=== PATIENT | male | born 1975 | race Caucasian/White ===

== ENCOUNTER 2018-09-06 09:51 | Emergency (ER) | payer BC, OTHER ==
[2018-09-06] MEDS ORDERED: NA CHLORIDE 0.9% 1,000 ML ONE (10:25)
[2018-09-06] MEDS ORDERED: ONDANSETRON 4 MG/2 ML VIAL ONE (10:25)
[2018-09-06] MEDS ORDERED: KETOROLAC 30 MG/ML INJ ONE (10:25)
[2018-09-06 10:35] LABS: Absolute Lymphocytes (CBC) 2.5 K/uL (0.7-4.9); Absolute Monocytes 0.3 K/uL (0.1-1.3); Absolute Neutrophil 4.4 K/uL (1.8-8.0); Basophils % 0.6 % (0-1.3); Eosinophils % 3.5 % (0-4.4); Hematocrit 43.6 % (39.6-49.0); Lymphocytes % 32.9 % (15.3-44.8); MPV 8.5 fL (7.6-11.3); Monocytes % 4.1 % (3.3-12.3); RBC Red Blood Cell Count 4.68 M/uL (4.33-5.43)
--- NOTE | 2018-09-06 10:44 | RAD REPORT ---
EXAM DESCRIPTION: CT - Stone Protocol - 09/06/2018 10:27 am CLINICAL HISTORY: Abdominal pain. Left flank pain COMPARISON: 2015 TECHNIQUE: Computed axial tomography of the abdomen pelvis was obtained without oral or IV contrast. Lack of IV and oral contrast limits evaluation of solid organs, bowel, and vessels. Coronal reformat samina images were obtained and reviewed. All CT scans are performed using dose optimization technique as appropriate and may include automated exposure control or mA/KV adjustment according to patient size. FINDINGS Small multiple bilateral renal calculi are present. Mild left hydronephrosis is present. Within the m id left ureter is a 3 millimeter calculus Hounsfield unit 794. . The liver, spleen, pancreas and adrenals appear grossly normal There is no evidence of diverticulitis. The appendix appears normal Small umbilical hernia IMPRESSION: 3 millimeter calculus mid left ureter resulting in mild left hydronephrosis
[2018-09-06 10:52] LABS: Albumin 4.3 g/dL (3.4-5.0); Bilirubin Direct 0.2 mg/dL (0-0.2); Bilirubin Total 0.9 mg/dL (0.2-1.0); Potassium 3.8 mmol/L (3.5-5.1); Protein, Total 7.8 g/dL (6.4-8.2)
[2018-09-06] MEDS ORDERED: TAMSULOSIN 0.4 MG SR CAP ONE (11:25)
[2018-09-06] MEDS ORDERED: CEFTRIAXONE/SWI 1gm 1 GM/10 ML SYR ONE (11:26)
[2018-09-06] MEDS ORDERED: MAGNESIUM SULFATE 1 gm IVPB 1 GM/100 ML BAG IV ONE (11:26)
[2018-09-06] MEDS ORDERED: FENTANYL CITR 100 MCG/2 ML ONE (12:17)
--- NOTE | 2018-09-06 12:30 | ER ---
Nurse's Notes [facility] Name: Olvin Butt Age: 42 yrs Sex: Male : 1975 Arrival Date: 09/06/2018 Time: 09:55 Bed 18 Private MD: Diagnosis: Calculus of kidney and ureter Presentation: 09/06 09:58 Presenting complaint: Patient states: left flank pain radiating down to left groin that aa5 began yesterday, went away and pain came back today. 09:58 Transition of care: patient was not received from another setting of care. Onset of aa5 symptoms was August 2018. Risk Assessment: Do you want to hurt yourself or someone else? Patient reports no desire to harm self or others. Initial Sepsis Screen: Does the patient meet any 2 criteria? No. Patient's initial sepsis screen is negative. Does the patient have a suspected source of infection? No. Patient's initial sepsis screen is negative. Care prior to arrival: None. 09:58 Method Of Arrival: Ambulatory aa5 09:58 Acuity: IDALMIS 3 aa5 Historical: - Allergies: 10:00 Lidocaine; aa5 - PMHx: 10:00 Kidney stones; aa5 - PSHx: 10:00 right arm with screws; left ankle with screws; aa5 - Immunization history:: Adult Immunizations up to date. - Social history:: Smoking status: Patient/guardian denies using tobacco. - Ebola Screening: : No symptoms or risks identified at this time. Screenin:06 Abuse screen: Denies threats or abuse. Nutritional screening: No deficits noted. aa5 Tuberculosis screening: No symptoms or risk factors identified. Fall Risk None identified. Assessment: 10:00 General: Appears uncomfortable, Behavior is calm, cooperative. Pain: Complains of pain aa5 in left flank Pain radiates to left groin Pain currently is 8 out of 10 on a pain scale. Quality of pain is described as sharp, shooting, Pain began 1 day ago. Is continuous. Neuro: Level of Consciousness is awake, alert, obeys commands, Oriented to person, place, time, situation. Cardiovascular: Heart tones S1 S2 present Rhythm is regular. Respiratory: Airway is patent Respiratory effort is even, unlabored, Respiratory pattern is regular, symmetrical. GI: Abdomen is round non-distended, Bowel sounds present X 4 quads. Abd is soft and non tender X 4 quads. : Denies inability to void. EENT: No signs and/or symptoms were reported regarding the EENT system. Derm: Skin is pink, warm \T\ dry. Musculoskeletal: Range of motion: intact in all extremities. 11:00 Reassessment: Patient appears in no apparent distress at this time. Patient and/or em family updated on plan of care and expected duration. Pain level reassessed. Patient is alert, oriented x 3, equal unlabored respirations, skin warm/dry/pink. Patient states feeling better. 12:00 Reassessment: Patient appears in no apparent distress at this time. Patient and/or em family updated on plan of care and expected duration. Pain level reassessed. pt reports pain provider notified, new medication orders. 13:08 Reassessment: Patient appears in no apparent distress at this time. Patient and/or em family updated on plan of care and expected duration. Pain level reassessed. Patient is alert, oriented x 3, equal unlabored respirations, skin warm/dry/pink. Patient states feeling better. Patient states symptoms have improved. Vital Signs: 10:00 BP 157 / 101; Pulse 75; Resp 18 S; Temp 98.1(O); Pulse Ox 99% on R/A; Weight 106.59 kg aa5 (R); Height 6 ft. 0 in. (182.88 cm) (R); Pain 8/10; 11:12 BP 105 / 67; Pulse 67; Resp 18; Temp 98.4(O); Pulse Ox 96% on R/A; mh5 12:00 BP 116 / 73; Pulse 69; Resp 18; Pulse Ox 99% on R/A; Pain 5/10; em 10:00 Body Mass Index 31.87 (106.59 kg, 182.88 cm) aa5 ED Course: 09:55 Patient arrived in ED. mr 09:58 Arm band placed on Patient placed in an exam room, on a stretcher. aa5 09:58 Patient has correct armband on for positive identification. Placed in gown. Bed in low aa5 position. Call light in reach. Side rails up X 1. 10:00 Isaiah Chambers LVN is Primary Nurse. em 10:02 Triage completed. aa5 10:06 No provider procedures requiring assistance completed. aa5 10:07 [facility] cp 10:07 Richar Hamilton MD is Attending Physician. cp 10:25 CT completed. Patient tolerated procedure well. Patient moved back from CT. bq 10:26 Initial lab(s) drawn, by me, sent to lab. Inserted saline lock: 20 gauge in left mh5 antecubital area, using aseptic technique. Blood collected. 10:27 Pillow given. Pulse ox on. NIBP on. 5 10:27 Basic Metabolic Panel Sent. 5 10: CBC with Diff Sent. 5 10: Creatinine for Radiology Sent. mh5 10:27 Hepatic Function Sent. 5 10:27 Lipase Sent. 5 12:26 Georgina Gutierrez MD is Referral Physician. cp 12:35 Urine collected: clean catch specimen, clear. em 13:07 IV discontinued, intact, bleeding controlled, No redness/swelling at site. Pressure em dressing applied. Administered Medications: 10:21 Drug: NS 0.9% 1000 ml Route: IV; Rate: 1 bolus; Site: left antecubital; em 11:44 Follow up: IV Status: Completed infusion; IV Intake: 1000ml em 10:22 Drug: TORadol 30 mg Route: IVP; Site: left antecubital; aa5 10:49 Follow up: Response: No adverse reaction; Pain is decreased em 10:22 Drug: Zofran 4 mg Route: IVP; Site: left antecubital; aa5 10:49 Follow up: Response: No adverse reaction em 11:21 Drug: Magnesium Sulfate 1 grams Route: IVPB; Infused Over: 1 hrs; Site: left em antecubital; 12:45 Follow up: Response: No adverse reaction; IV Status: Completed infusion; IV Intake: em 100ml 11:21 Drug: Flomax 0.4 mg Route: PO; em 11:44 Follow up: Response: No adverse reaction em 12:17 Drug: fentaNYL (PF) 50 mcg Route: IVP; Site: left antecubital; aa5 12:40 Follow up: Response: No adverse reaction; Pain is decreased em 12:40 Drug: Rocephin - (cefTRIAXone) 1 grams Route: IVPB; Infused Over: 30 mins; Site: left aa5 antecubital; 13:07 Follow up: Response: No adverse reaction; IV Status: Completed infusion; IV Intake: 10mlem Intake: 11:44 IV: 1000ml; Total: 1000ml. em 12:45 IV: 100ml; Total: 1100ml. em 13:07 IV: 10ml; Total: 1110ml. em Outcome: 12:29 Discharge ordered by . cp 13:07 Discharged to home ambulatory. em 13:07 Condition: good 13:07 Discharge instructions given to patient, Instructed on discharge instructions, follow up and referral plans. no drinking with medication, no driving heavy equipment, medication usage, Demonstrated understanding of instructions, follow-up care, medications, Prescriptions given X 4. 13:09 Patient left the ED. em Signatures: Dotty HarmanveronicaTaniya Edgar, ULTRASOUND TESTER ULTRASOUND TESTER em Jenny Wells, LI RN aa5 Richar Aquino PA PA cp [place] [id number]
--- NOTE | 2018-09-06 12:30 | EDPHYS ---
Physician Documentation [facility] Name: Olvin Butt Age: 42 yrs Sex: Male : 1975 Arrival Date: 09/06/2018 Time: 09:55 Bed 18 Private MD: ED Richar Bean HPI: 09/06 10:30 This 42 yrs old Male presents to ER via Ambulatory with complaints of cp Possible Kidney Stone. 10:30 The patient complains of pain in the left mid back. cp 10:30 The pain radiates to the left groin. Onset: The symptoms/episode began/occurred cp yesterday. Associated signs and symptoms: Pertinent positives: nausea. Historical: - Allergies: 10:00 Lidocaine; aa5 - PMHx: 10:00 Kidney stones; aa5 - PSHx: 10:00 right arm with screws; left ankle with screws; aa5 - Immunization history:: Adult Immunizations up to date. - Social history:: Smoking status: Patient/guardian denies using tobacco. - Ebola Screening: : No symptoms or risks identified at this time. ROS: 10:35 Constitutional: Negative for body aches, chills, fever, poor PO intake. cp 10:35 Eyes: Negative for injury, pain, redness, and discharge. cp 10:35 ENT: Negative for drainage from ear(s), ear pain, sore throat, difficulty swallowing, difficulty handling secretions. 10:35 Cardiovascular: Negative for chest pain, edema, palpitations. 10:35 Respiratory: Negative for cough, shortness of breath, wheezing. 10:35 Abdomen/GI: Positive for abdominal pain, nausea, Negative for vomiting, diarrhea, constipation, black/tarry stool, rectal bleeding. 10:35 Back: Positive for flank pain, on the left, Negative for injury or acute deformity, decreased range of motion. 10:35 Skin: Negative for cellulitis, rash. 10:35 Neuro: Negative for altered mental status, headache, weakness. 10:35 All other systems are negative. Exam: 10:42 Constitutional: The patient appears in no acute distress, alert, awake, non-toxic, well cp developed, well nourished, diaphoretic, uncomfortable. 10:42 Head/Face: Normocephalic, atraumatic. cp 10:42 Eyes: Periorbital structures: appear normal, Conjunctiva: normal, no exudate, no injection, Sclera: no appreciated abnormality, Lids and lashes: appear normal, bilaterally. 10:42 ENT: External ear(s): are unremarkable, Nose: is normal, Mouth: is normal, Posterior pharynx: is normal, airway is patent, no erythema, no exudate. 10:42 Neck: ROM/movement: is normal, is supple, without pain, no range of motions limitations, no nuchal rigidity. 10:42 Chest/axilla: Inspection: normal, Palpation: is normal, no crepitus, no tenderness. 10:42 Cardiovascular: Rate: normal, Rhythm: regular. 10:42 Respiratory: the patient does not display signs of respiratory distress, Respirations: normal, no use of accessory muscles, no retractions, no splinting, no tachypnea, Breath sounds: are clear throughout, no decreased breath sounds, no stridor, no wheezing. 10:42 Abdomen/GI: Inspection: abdomen appears normal, Bowel sounds: active, all quadrants, Palpation: soft, in all quadrants, mild abdominal tenderness, in the left upper quadrant and left lower quadrant, rebound tenderness, is not appreciated, voluntary guarding, is not appreciated, involuntary guarding, is not appreciated. 10:42 Skin: cellulitis, is not appreciated, no rash present. Vital Signs: 10:00 BP 157 / 101; Pulse 75; Resp 18 S; Temp 98.1(O); Pulse Ox 99% on R/A; Weight 106.59 kg aa5 (R); Height 6 ft. 0 in. (182.88 cm) (R); Pain 8/10; 11:12 BP 105 / 67; Pulse 67; Resp 18; Temp 98.4(O); Pulse Ox 96% on R/A; mh5 12:00 BP 116 / 73; Pulse 69; Resp 18; Pulse Ox 99% on R/A; Pain 5/10; em 10:00 Body Mass Index 31.87 (106.59 kg, 182.88 cm) aa5 MDM: 10:08 Patient medically screened. cp 10:45 Differential diagnosis: nephrolithiasis, pyelonephritis, UTI, testicular torsion, cp diverticulitis, pancreatitis. 12:28 Data reviewed: vital signs, nurses notes, lab test result(s), radiologic studies, CT cp scan. 12:28 Counseling: I had a detailed discussion with the patient and/or guardian regarding: the cp historical points, exam findings, and any diagnostic results supporting the discharge/admit diagnosis, lab results, radiology results, to return to the emergency department if symptoms worsen or persist or if there are any questions or concerns that arise at home. Response to treatment: the patient's symptoms have markedly improved after treatment, and as a result, I will discharge patient. 09/06 10:11 Order name: Basic Metabolic Panel 09/06 10:11 Order name: CBC with Diff 09/06 10:11 Order name: Creatinine for Radiology 09/06 10:11 Order name: Hepatic Function 09/06 10:11 Order name: Lipase 09/06 10:33 Order name: Urine Microscopic Only 09/06 10:11 Order name: CT Stone Protocol 09/06 10:37 Order name: CBC with Automated Diff; Complete Time: 11:10 EDUT 09/06 10:44 Order name: CT; Complete Time: 11:10 [facility] 09/06 11:17 Interpretation: Report reviewed. 09/06 10:50 Order name: Creatinine (Radiology Only); Complete Time: 11:10 EDUT 09/06 10:52 Order name: Basic Metabolic Panel; Complete Time: 11:10 [facility] 09/06 11:16 Interpretation: Normal except: CL 108; GFR 74. 09/06 10:52 Order name: Liver (Hepatic) Function; Complete Time: 11:10 [facility] 09/06 12:17 Interpretation: Normal except: ALT 99. 09/06 10:52 Order name: Lipase; Complete Time: 11:10 [facility] 09/06 13:02 Order name: Urine Microscopic Only [facility] 09/06 10:11 Order name: IV Saline Lock; Complete Time: 10:21 09/06 10:11 Order name: Labs collected and sent; Complete Time: 10:21 cp 09/06 10:33 Order name: Urine Dipstick-Ancillary (obtain specimen); Complete Time: 12:35 cp Administered Medications: 10:21 Drug: NS 0.9% 1000 ml Route: IV; Rate: 1 bolus; Site: left antecubital; em 11:44 Follow up: IV Status: Completed infusion; IV Intake: 1000ml em 10:22 Drug: TORadol 30 mg Route: IVP; Site: left antecubital; aa5 10:49 Follow up: Response: No adverse reaction; Pain is decreased em 10:22 Drug: Zofran 4 mg Route: IVP; Site: left antecubital; aa5 10:49 Follow up: Response: No adverse reaction em 11:21 Drug: Magnesium Sulfate 1 grams Route: IVPB; Infused Over: 1 hrs; Site: left em antecubital; 12:45 Follow up: Response: No adverse reaction; IV Status: Completed infusion; IV Intake: em 100ml 11:21 Drug: Flomax 0.4 mg Route: PO; em 11:44 Follow up: Response: No adverse reaction em 12:17 Drug: fentaNYL (PF) 50 mcg Route: IVP; Site: left antecubital; aa5 12:40 Follow up: Response: No adverse reaction; Pain is decreased em 12:40 Drug: Rocephin - (cefTRIAXone) 1 grams Route: IVPB; Infused Over: 30 mins; Site: left aa5 antecubital; 13:07 Follow up: Response: No adverse reaction; IV Status: Completed infusion; IV Intake: 10mlem Disposition: 09/06/18 12:29 Discharged to Home. Impression: Calculus of kidney and ureter. - Condition is Stable. - Discharge Instructions: Kidney Stones. - Prescriptions for Tylenol- Codeine #3 300-30 mg Oral Tablet - take 2 tablets by ORAL route every 6 hours As needed; 20 tablet. Zofran 4 mg Oral Tablet - take 1 tablet by ORAL route every 12 hours As needed; 20 tablet. Flomax 0.4 mg Oral Capsule, Sust. Release 24 hr - take 1 capsule by ORAL route once daily As needed 1/2 hour following the same meal each day; 5 capsule. Cipro 500 mg Oral Tablet - take 1 tablet by ORAL route every 12 hours for 7 days; 14 tablet. - Medication Reconciliation Form, Thank You Letter, Antibiotic Education, Prescription Opioid Use form. - Follow up: Georgina Gutierrez MD; When: 2 - 3 days; Reason: pain continues. - Problem is new. - Symptoms have improved. Addendum: 09/08/2018 07:44 Co-signature as Attending Physician, Richar Hamilton MD I agree with the assessment and c saul plan of care. Signatures: Dispatcher [employer] Richar Lyn MD MD cha Munoz, Edgar, PROGRAM SUPPORT CLERK PROGRAM SUPPORT CLERK em Jenny Wells RN RN aa5 Richar Aquino PA PA cp Corrections: (The following items were deleted from the chart) 09/06 13:09 12:29 09/06/2018 12:29 Discharged to Home. Impression: Calculus of kidney and ureter. em Condition is Stable. Discharge Instructions: Kidney Stones. Prescriptions for Tylenol-Codeine #3 300-30 mg Oral Tablet - take 2 tablets by ORAL route every 6 hours As needed; 20 tablet, Zofran 4 mg Oral Tablet - take 1 tablet by ORAL route every 12 hours As needed; 20 tablet, Flomax 0.4 mg Oral Capsule, Sust. Release 24 hr - take 1 capsule by ORAL route once daily As needed 1/2 hour following the same meal each day; 5 capsule, Cipro 500 mg Oral Tablet - take 1 tablet by ORAL route every 12 hours for 7 days; 14 tablet. and Forms are Medication Reconciliation Form, Thank You Letter, Antibiotic Education, Prescription Opioid Use. Follow up: Georgina Gutierrez; When: 2 - 3 days; Reason: pain continues. Problem is new. Symptoms have improved. cp
[2018-09-06 13:01] LABS: Urine Bacteria <20 /HPF (NONE SEEN); Urine Culture Reflex Order NOT NEEDED; Urine Mucus 1+ /HPF (NONE SEEN)
== END 2018-09-06 13:09 | disposition home or self-care (01) ==
LOC: ER 09:51
DX: N20.2 Calculus of kidney with calculus of ureter (principal); Z88.6 Allergy status to analgesic agent
CPT/HCPCS: 36415; 74176; 76377; 80048; 80076; 81015; 83690; 85025; J0696; J2405; J3010; J3475; J7030

== ENCOUNTER 2019-02-27 12:22 | Emergency (ER) | payer BC ==
[2019-02-27] MEDS ORDERED: GLUCAGON 1 MG/VIAL ONE ×2 (13:45→14:48)
--- NOTE | 2019-02-27 14:05 | RAD REPORT ---
EXAM DESCRIPTION: RAD - Chest Pa And Lat (2 Views) - 02/27/2019 1:57 pm CLINICAL HISTORY: food bolus sensation Chest pain. COMPARISON: Abdomen 1 View (KUB) dated 08/07/2016 FINDINGS: The lungs are clear. The heart is normal in size. No displaced fractures.
--- NOTE | 2019-02-27 15:36 | ER ---
Nurse's Notes [facility] Name: Olvin Butt Age: 43 yrs Sex: Male : 1975 Arrival Date: 02/27/2019 Time: 12:23 Bed 25 Private MD: Diagnosis: Foreign body in esophagus Presentation: 02/27 12:38 Presenting complaint: Patient states: Theres a piece of boneless chicken breast in my la1 esophagus that is stuck, this will be the third time, have had to have surgery both other times. Transition of care: patient was not received from another setting of care. Onset of symptoms was February 27, 2019. Risk Assessment: Do you want to hurt yourself or someone else? Patient reports no desire to harm self or others. Initial Sepsis Screen: Does the patient meet any 2 criteria? No. Patient's initial sepsis screen is negative. Does the patient have a suspected source of infection? No. Patient's initial sepsis screen is negative. Care prior to arrival: None. 12:38 Method Of Arrival: Ambulatory la1 12:38 Acuity: IDALMIS 3 la1 Historical: - Allergies: 12:39 Lidocaine; la1 - PMHx: 12:39 Kidney stones; la1 - Immunization history:: Adult Immunizations up to date. - Social history:: Smoking status: Patient/guardian denies using tobacco. - Ebola Screening: : No symptoms or risks identified at this time. Screenin:15 Abuse screen: Denies threats or abuse. Denies injuries from another. Nutritional ca1 screening: No deficits noted. Tuberculosis screening: No symptoms or risk factors identified. Fall Risk IV access (20 points). Assessment: 13:15 General: Appears in no apparent distress. comfortable, Behavior is calm, cooperative, ca1 appropriate for age. Pain: Complains of pain in mid-sternal area Pain does not radiate. Pain currently is 5 out of 10 on a pain scale. Neuro: Level of Consciousness is awake, alert, obeys commands, Oriented to person, place, time, situation. Cardiovascular: Heart tones S1 S2 present Capillary refill < 3 seconds Patient's skin is warm and dry. Pulses are all present. Respiratory: Airway is patent Respiratory effort is even, unlabored, Respiratory pattern is regular, symmetrical, Breath sounds are clear bilaterally. GI: Abdomen is round non-distended, Bowel sounds present X 4 quads. Abd is soft and non tender X 4 quads. : No deficits noted. No signs and/or symptoms were reported regarding the genitourinary system. EENT: Throat is clear is pink. Derm: Skin is intact, is healthy with good turgor, Skin is pink, warm \T\ dry. Musculoskeletal: Circulation, motion, and sensation intact. Capillary refill < 3 seconds. 14:09 Reassessment: Patient appears in no apparent distress at this time. Patient and/or ca1 family updated on plan of care and expected duration. Pain level reassessed. Patient is alert, oriented x 3, equal unlabored respirations, skin warm/dry/pink. Pt states, he feels like it's still in his throat. 15:03 Reassessment: Patient appears in no apparent distress at this time. Patient and/or ca1 family updated on plan of care and expected duration. Pain level reassessed. Patient is alert, oriented x 3, equal unlabored respirations, skin warm/dry/pink. 16:04 Reassessment: Patient appears in no apparent distress at this time. Patient and/or ca1 family updated on plan of care and expected duration. Pain level reassessed. Patient is alert, oriented x 3, equal unlabored respirations, skin warm/dry/pink. 16:31 Reassessment: Patient appears in no apparent distress at this time. Patient is alert, ca1 oriented x 3, equal unlabored respirations, skin warm/dry/pink. Called report to LI Yadav. Vital Signs: 12:39 BP 140 / 94; Pulse 76; Resp 16; Temp 98.2; Pulse Ox 98% on R/A; Weight 103.42 kg; la1 Height 6 ft. 0 in. (182.88 cm); 13:15 BP 132 / 95; Pulse 74; Resp 17 S; Pulse Ox 100% on R/A; ca1 14:09 BP 120 / 90; Pulse 82; Resp 17 S; Temp 98.1(O); Pulse Ox 99% on R/A; ca1 15:03 BP 116 / 87; Pulse 60; Resp 17 S; Temp 98(O); Pulse Ox 98% on R/A; ca1 16:04 BP 114 / 87; Pulse 64; Resp 16 S; Temp 98(O); Pulse Ox 100% on R/A; ca1 16:41 BP 125 / 88; Pulse 76; Resp 15 S; Temp 98(O); Pulse Ox 100% on R/A; ca1 12:39 Body Mass Index 30.92 (103.42 kg, 182.88 cm) la1 ED Course: 12:23 Patient arrived in ED. as 12:38 Triage completed. la1 12:39 Arm band placed on left wrist. la1 13:15 Patient has correct armband on for positive identification. Placed in gown. Bed in low ca1 position. Call light in reach. Side rails up X 1. Pulse ox on. NIBP on. Warm blanket given. 13:16 Clara Casey RN is Primary Nurse. ca1 13:19 Fredy Zhao NP is PHCP. pm1 13:19 Aramis Rubio MD is Attending Physician. pm1 13:30 Inserted saline lock: 20 gauge in left antecubital area, using aseptic technique. ca1 13:57 X-ray completed. Patient tolerated procedure well. Patient moved to radiology via ml wheelchair. Patient moved back from radiology. 13:57 Chest Pa And Lat (2 Views) XRAY In Process Unspecified. EDMS 16:31 No provider procedures requiring assistance completed. Patient transferred, IV remains ca1 in place. Administered Medications: 13:30 Drug: Glucagon 1 mg Route: IVP; Site: left antecubital; ca1 14:31 Follow up: Response: No adverse reaction ca1 14:36 Drug: Glucagon 1 mg Route: IVP; Site: left antecubital; ca1 16:08 Follow up: Response: No adverse reaction; No change in condition ca1 16:20 Drug: NS 0.9% 1000 ml Route: IV; Rate: 125 ml/hr; Site: left antecubital; ca1 17:09 Follow up: IV Status: Infusion continued upon transfer ca1 Outcome: 15:35 ER care complete, transfer ordered by . pm1 17:09 Transferred by ground EMS to [facility], Transfer form completed. ca1 X-rays sent w/ patient. 17:09 Condition: stable 17:09 Instructed on the need for transfer. 17:09 Patient left the ED. ca1 Signatures: Dispatcher [employer] EDMS Mirella Perez Melissa ml Attema, Lee, RN RN la1 Fredy Zhao NP [employer]ANBERR[employer]OG SUPERVISOR pm1 Acmika, Clara, RN RN ca1
--- NOTE | 2019-02-27 15:36 | EDPHYS ---
Physician Documentation [facility] Name: Olvin Butt Age: 43 yrs Sex: Male : 1975 Arrival Date: 02/27/2019 Time: 12:23 Bed 25 Private MD: ED Physician Aramis Rubio HPI: 02/27 13:42 This 43 yrs old Male presents to ER via Ambulatory with complaints of Foreign pm1 Body In Throat. 13:42 The patient presents with a foreign body sensation in the throat. Onset: The pm1 symptoms/episode began/occurred 1 hour prior to arrival. Severity of symptoms: in the emergency department the symptoms are unchanged. Modifying factors: The symptoms are alleviated by nothing, the symptoms are aggravated by swallowing, has some difficulty with swallowing his spit. Spits it out. No shortness of breath or difficulty with talking. Historical: - Allergies: 12:39 Lidocaine; la1 - PMHx: 12:39 Kidney stones; la1 - Immunization history:: Adult Immunizations up to date. - Social history:: Smoking status: Patient/guardian denies using tobacco. - Ebola Screening: : No symptoms or risks identified at this time. ROS: 13:42 Constitutional: Negative for fever, chills, and weight loss, Eyes: Negative for injury, pm1 pain, redness, and discharge, ENT: Negative for injury, pain, and discharge, Neck: Negative for injury, pain, and swelling, Cardiovascular: Negative for chest pain, palpitations, and edema, Respiratory: Negative for shortness of breath, cough, wheezing, and pleuritic chest pain, Back: Negative for injury and pain, MS/Extremity: Negative for injury and deformity, Skin: Negative for injury, rash, and discoloration, Neuro: Negative for headache, weakness, numbness, tingling, and seizure. 13:42 Abdomen/GI: Positive for Difficulty with swallowing. Foreign body sensation in throat, Negative for abdominal pain, nausea, vomiting, and diarrhea. Exam: 13:42 Constitutional: This is a well developed, well nourished patient who is awake, alert, pm1 and in no acute distress. Head/Face: Normocephalic, atraumatic. Neck: Trachea midline, no thyromegaly or masses palpated, and no cervical lymphadenopathy. Supple, full range of motion without nuchal rigidity, or vertebral point tenderness. No Meningismus. Chest/axilla: Normal chest wall appearance and motion. Nontender with no deformity. No lesions are appreciated. Cardiovascular: Regular rate and rhythm with a normal S1 and S2. No gallops, murmurs, or rubs. Normal PMI, no JVD. No pulse deficits. Respiratory: Lungs have equal breath sounds bilaterally, clear to auscultation and percussion. No rales, rhonchi or wheezes noted. No increased work of breathing, no retractions or nasal flaring. 13:42 Abdomen/GI: Soft, non-tender, with normal bowel sounds. No distension or tympany. No guarding or rebound. No evidence of tenderness throughout. Back: No spinal tenderness. No costovertebral tenderness. Full range of motion. Skin: Warm, dry with normal turgor. Normal color with no rashes, no lesions, and no evidence of cellulitis. MS/ Extremity: Pulses equal, no cyanosis. Neurovascular intact. Full, normal range of motion. 13:42 ENT: External ear(s): are unremarkable, Mouth: is normal, drooling, is not appreciated, Posterior pharynx: is normal. 13:42 Neuro: Orientation: is normal, Motor: is normal, moves all fours. Vital Signs: 12:39 BP 140 / 94; Pulse 76; Resp 16; Temp 98.2; Pulse Ox 98% on R/A; Weight 103.42 kg; la1 Height 6 ft. 0 in. (182.88 cm); 13:15 BP 132 / 95; Pulse 74; Resp 17 S; Pulse Ox 100% on R/A; ca1 14:09 BP 120 / 90; Pulse 82; Resp 17 S; Temp 98.1(O); Pulse Ox 99% on R/A; ca1 15:03 BP 116 / 87; Pulse 60; Resp 17 S; Temp 98(O); Pulse Ox 98% on R/A; ca1 16:04 BP 114 / 87; Pulse 64; Resp 16 S; Temp 98(O); Pulse Ox 100% on R/A; ca1 16:41 BP 125 / 88; Pulse 76; Resp 15 S; Temp 98(O); Pulse Ox 100% on R/A; ca1 12:39 Body Mass Index 30.92 (103.42 kg, 182.88 cm) la1 MDM: 13:23 Patient medically screened. pm1 15:25 Physician consultation: Wes Lainez MD was called at 15:25, was contacted at 15:25, pm1 regarding patient's condition, Not loss prevention leader and is out of town, recommends trying to contact Dr. Waller if he is available. 15:29 Data reviewed: vital signs. Data interpreted: Pulse oximetry: on room air is 98 %. pm1 Interpretation: normal. Counseling: I had a detailed discussion with the patient and/or guardian regarding: the historical points, exam findings, and any diagnostic results supporting the discharge/admit diagnosis. 15:29 Physician consultation: González Waller MD Not loss prevention leader. No answer. Left message. pm1 15:33 Counseling: I had a detailed discussion with the patient and/or guardian regarding: the pm1 need to transfer to another facility, [facility] does not immediately have the required specialist. 15:54 Physician consultation: MD Wesley was contacted at 15:55, regarding regarding transfer, pm1 consult, patient's condition, and will see patient. 16:04 Physician consultation: MD Morales was contacted at 16:04, regarding regarding pm1 transfer, patient's condition, and will see patient would like further tests performed, basic blood tests. 02/27 16:04 Order name: CBC with Diff; Complete Time: 16:47 pm1 02/27 16:04 Order name: CMP; Complete Time: 16:47 pm1 02/27 13:24 Order name: Chest Pa And Lat (2 Views) XRAY; Complete Time: 14:19 pm1 02/27 13:42 Order name: IV Saline Lock; Complete Time: 13:42 ca1 02/27 16:10 Order name: NPO; Complete Time: 16:20 pm1 Administered Medications: 13:30 Drug: Glucagon 1 mg Route: IVP; Site: left antecubital; ca1 14:31 Follow up: Response: No adverse reaction ca1 14:36 Drug: Glucagon 1 mg Route: IVP; Site: left antecubital; ca1 16:08 Follow up: Response: No adverse reaction; No change in condition ca1 16:20 Drug: NS 0.9% 1000 ml Route: IV; Rate: 125 ml/hr; Site: left antecubital; ca1 17:09 Follow up: IV Status: Infusion continued upon transfer ca1 Disposition: 17:30 Co-signature as Attending Physician, Aramis Rubio MD. rn Disposition: 02/27/19 15:35 Transfer ordered to [facility]. Diagnosis is Foreign body in esophagus. - Reason for transfer: Specialty. - Accepting physician is [facility]. - Condition is Stable. - Problem is new. - Symptoms have improved. Signatures: Dispatcher [employer] EDMS Aramis Rubio MD MD rn Attema, Lee, RN RN la1 Fredy Zhao MANAGER OF LOSS PREVENTION OPERATIONS MANAGER OF LOSS PREVENTION OPERATIONS pm1 Clara Casey RN RN ca1 Corrections: (The following items were deleted from the chart) 17: 15:35 02/27/2019 15:35 Transfer ordered to [facility]. Diagnosis is ca1 Foreign body in esophagus. Reason for transfer: Specialty. Accepting physician is [facility]. Condition is Stable. Problem is new. Symptoms have improved. pm1
[2019-02-27 16:20] LABS: Absolute Lymphocytes (CBC) 2.5 K/uL (0.7-4.9); Basophils % 0.7 % (0-1.3); Eosinophils % 3.2 % (0-4.4); Hematocrit 46.2 % (39.6-49.0); Lymphocytes % 23.7 % (15.3-44.8); MPV 8.5 fL (7.6-11.3); Monocytes % 3.3 % (3.3-12.3); RBC Red Blood Cell Count 4.89 M/uL (4.33-5.43)
[2019-02-27] MEDS ORDERED: NA CHLORIDE 0.9% 1,000 ML ONE (16:32)
[2019-02-27 16:42] LABS: Albumin 4.3 g/dL (3.4-5.0); Bilirubin Total 0.9 mg/dL (0.2-1.0); Potassium 4.3 mmol/L (3.5-5.1); Protein, Total 7.7 g/dL (6.4-8.2)
== END 2019-02-27 17:09 | disposition short-term general hospital (02) ==
LOC: ER 12:22
DX: T18.128A Food in esophagus causing other injury, initial encounter (principal); X58.XXXA Exposure to other specified factors, initial encounter; Y93.9 Activity, unspecified; Y92.9 Unspecified place or not applicable; Z88.8 Allergy status to other drugs, medicaments and biological substances
CPT/HCPCS: 36415; 71046; 80053; 85025; 96361; 96374; 99285; J1610; J7030

== ENCOUNTER 2019-08-05 21:47 | Emergency (ER) | payer BC ==
--- OUTSIDE RECORDS SUMMARY | 2019-08-05 21:49 | XMS REPORT ---
:1975 Author Organization [facility] Address [address] [place] [address] Care Team Providers Name Role Phone CLARICE MUNGUIA Unavailable Unavailable Problems This patient has no known problems. Allergies, Adverse Reactions, Alerts This patient has no known allergies or adverse reactions. Medications This patient has no known medications. Results Test Description Test Time Test Comments Text Results Atomic Results Result Comments TISSUE EXAM 2019-03-04 15:21:00 Surgical Pathology Report Case: [id number] Authorizing Provider: Roberto Garcia Collected: 02/27/20192034 Ordering Location: [address] Received: 03/02/2019 0817 Service Pathologist: Bakari Santana MD Specimens: A) - Distal Esophagus, Distal esophagus biopsy B) - Biopsy, Mid-esophagus, Mid esophagus biopsy A. ESOPHAGUS, DISTAL, BIOPSY: - SQUAMOUS EPITHELIUM WITH INTRA-EPITHELIAL EOSINOPHILS (SEE COMMENT)B. ESOPHAGUS, MID, BIOPSY: - SQUAMOUS EPITHELIUM WITH INTRA-EPITHELIAL EOSINOPHILS (SEE COMMENT) Signing Pathologist Direct Phone Line: [phone] signed by Bakari Santana MD on 03/04/2019 at 3:21 PMSections show squamous epithelium with prominent eosinophilia and reactive changes. The eosinophil count reaches the threshold of 15/HPF in some areas. Additionally, degenerating muscle fibers are seen consistent with foreign body.Considering the history of food impaction, histologic findings could be compatible with eosinophilic esophagitis. Clinical and endoscopic correlation is required to exclude other causes of eosinophilia such as GERD, pill induced esophagitis, hypereosinophilic syndrome, parasitic disease, Crohn's disease and connective tissue disorders.[id number] bolus obstruction A. Distal esophagus biopsy. B. Mid esophagus biopsyPart A. Received in formalin labeled with the patient's name, accession number and "distal esophagus" are multiple white soft tissue fragments ranging 0.1-0.2 cm,which are submitted in toto in A1.Part B. Received in formalin labeled with the patient's name, accession number and "biopsy, mid esophagus" are four irregular white soft tissue fragments ranging 0.2-0.5 cm, which are submitted in toto in B1. CG/ew Performed.The interpretation of this case included the use of immunohistochemistry or special stains.Control Slides Examined: In-house known positive controls were evaluated along with the test tissue. These control slides run alongside of the patients sample show appropriate staining. Internal positive and negative controls when available are evaluated Immunohistochemistry technical testing was performed at [facility], Pathology Laboratory where it was developed and its performance characteristics were determined. It has not been cleared or approved by the U.S. Food and Drug Administration. The FDA has determined that such clearance or approval is not necessary. The test is used for clinical purposes. It should not be regarded as investigational or for research. This laboratory is certified under the Clinical Laboratory Improvement Amendments of 1988 (CLIA-88) as qualified to perform high complexity clinical laboratory testing.
[2019-08-05] MEDS ORDERED: MORPHINE 4 MG/ML SYR ONE (22:31)
[2019-08-05] MEDS ORDERED: ONDANSETRON 4 MG/2 ML VIAL ONE (22:32)
[2019-08-05] MEDS ORDERED: NA CHLORIDE 0.9% 1,000 ML ONE (22:32)
[2019-08-05] MEDS ORDERED: KETOROLAC 30 MG/ML INJ ONE (22:32)
[2019-08-05 22:41] LABS: Absolute Lymphocytes (CBC) 2.5 K/uL (0.7-4.9); Lymphocytes % 27.6 % (15.3-44.8); MPV 8.3 fL (7.6-11.3); RBC Red Blood Cell Count 4.92 M/uL (4.33-5.43)
[2019-08-05 22:55] LABS: Albumin 4.2 g/dL (3.4-5.0); Potassium 3.6 mmol/L (3.5-5.1); Protein, Total 7.5 g/dL (6.4-8.2)
--- NOTE | 2019-08-05 23:42 | ER ---
Nurse's Notes [facility] Name: Olvin Butt Age: 43 yrs Sex: Male : 1975 Arrival Date: 08/05/2019 Time: 21:49 Bed 19 Private MD: Diagnosis: Calculus of kidney with calculus of ureter Presentation: 08/05 22:05 Presenting complaint: Patient states: L lower back that radiates to the L testicles. ca1 Started 30 - 45 minutes ago. Pt denies swelling and tenderness of testicles. Denies fever urinary S/S at this time. Reports history of kidney stones x 3. Transition of care: patient was not received from another setting of care. Onset of symptoms was August 05, 2019 at 21:00. Risk Assessment: Do you want to hurt yourself or someone else? Patient reports no desire to harm self or others. Initial Sepsis Screen: Does the patient meet any 2 criteria? No. Patient's initial sepsis screen is negative. Does the patient have a suspected source of infection? No. Patient's initial sepsis screen is negative. Care prior to arrival: None. 22:05 Method Of Arrival: Ambulatory ca1 22:05 Acuity: IDALMIS 3 ca1 Historical: - Allergies: 22:08 Lidocaine; ca1 - Home Meds: 22:08 None [Active]; ca1 - PMHx: 22:08 Kidney stones; ca1 - PSHx: 22:08 ankle surg; R arm surg; ca1 - Immunization history:: Adult Immunizations up to date, Flu vaccine is not up to date. - Social history:: Smoking status: Patient uses tobacco products, DIP. - Ebola Screening: : Patient negative for fever greater than or equal to 101.5 degrees Fahrenheit, and additional compatible Ebola Virus Disease symptoms Patient denies exposure to infectious person Patient denies travel to an Ebola-affected area in the 21 days before illness onset No symptoms or risks identified at this time. Screenin:30 Abuse screen: Denies threats or abuse. Denies injuries from another. Nutritional rr5 screening: No deficits noted. Tuberculosis screening: No symptoms or risk factors identified. Fall Risk IV access (20 points). Total Pinon Fall Scale indicates No Risk (0-24 pts). Assessment: 22:20 General: Appears in no apparent distress. uncomfortable, ill, Behavior is calm, rr5 cooperative, appropriate for age. 22:20 Neuro: Level of Consciousness is awake, alert, obeys commands, Oriented to person, rr5 place, time, situation, Appropriate for age. Cardiovascular: Capillary refill < 3 seconds Patient's skin is warm and dry. Respiratory: Airway is patent Respiratory effort is even, unlabored, Respiratory pattern is regular, symmetrical. GI: Abdomen is round. : Reports pain in left flank(s). EENT: No signs and/or symptoms were reported regarding the EENT system. Derm: Skin is intact, is healthy with good turgor, Skin temperature is warm. Musculoskeletal: Circulation, motion, and sensation intact. Capillary refill < 3 seconds. 23:25 Reassessment: Patient appears in no apparent distress at this time. Patient is alert, rr5 oriented x 3, equal unlabored respirations, skin warm/dry/pink. awaiting for result. Patient states feeling better. Patient states symptoms have improved. Pain: Pain currently is 4 out of 10 on a pain scale. 08/06 00:00 Reassessment: Patient appears in no apparent distress at this time. Patient is alert, rr5 oriented x 3, equal unlabored respirations, skin warm/dry/pink. unable to give urine sample. discharge instruction given and explained without complaints made. verbalized undertanding. Patient states feeling better. Patient states symptoms have improved. Vital Signs: 08/05 22:08 BP 161 / 109; Pulse 85; Resp 17 S; Pulse Ox 100% on R/A; Weight 104.33 kg (R); Height 6 ca1 ft. 0 in. (182.88 cm) (R); Pain 10/10; 23:00 BP 133 / 75; Pulse 85; Resp 20; Temp 97.8; Pulse Ox 98% ; Pain 8/10; rr5 23:40 BP 112 / 68; Pulse 62; Resp 18; Temp 98; Pulse Ox 99% ; Pain 4/10; rr5 08/06 00:00 BP 115 / 62; Pulse 69; Resp 16; Temp 97.7; Pulse Ox 98% on R/A; rr5 08/05 22:08 Body Mass Index 31.19 (104.33 kg, 182.88 cm) ca1 ED Course: 08/05 21:49 Patient arrived in ED. ag3 22:01 Geovanni Cloud MD is Attending Physician. tw4 22:07 Triage completed. ca1 22:08 Arm band placed on right wrist. ca1 22:17 Bharat Anna, RN is Primary Nurse. rr5 22:[address] via wheelchair. eh 22:30 Patient has correct armband on for positive identification. Placed in gown. Bed in low rr5 position. Call light in reach. Pulse ox on. NIBP on. 22:30 Inserted saline lock: 18 gauge in right antecubital area, using aseptic technique. rr5 ,using aseptic technique. inserted by doreen Blood collected. 22:43 CT completed. Patient tolerated procedure well. Patient moved back from [place]. eh 22:59 CT Stone Protocol In Process Unspecified. EDMS Administered Medications: 22:30 Drug: TORadol 30 mg Route: IVP; Site: right antecubital; rr5 23:30 Follow up: Response: No adverse reaction; Pain is decreased rr5 22:32 Drug: Zofran 4 mg Route: IVP; Site: right antecubital; rr5 23:30 Follow up: Response: No adverse reaction rr5 22:34 Drug: morphine 4 mg {Note: rass 0.} Route: IVP; Site: right antecubital; rr5 23:30 Follow up: Response: No adverse reaction; RASS: Alert and Calm (0) rr5 22:50 Drug: NS 0.9% 1000 ml Route: IV; Rate: 1 bolus; Site: right antecubital; rr5 23:50 Follow up: Response: No adverse reaction; IV Status: Completed infusion; IV Intake: rr5 1000ml Intake: 23:50 IV: 1000ml; Total: 1000ml. rr5 Outcome: 23:42 Discharge ordered by . tw4 08/06 00:08 Patient left the ED. rr5 Signatures: Dispatcher [employer] EDMS Kb Rey Terrence, MD MD tw4 Anika Woodard 3 Bharat Anna, RN RN rr5 Clara Casey RN RN ca1
--- NOTE | 2019-08-05 23:43 | EDPHYS ---
Physician Documentation [facility] Name: Olvin Butt Age: 43 yrs Sex: Male : 1975 Arrival Date: 08/05/2019 Time: 21:49 Bed 19 Private MD: ED Physician Geovanni Cloud HPI: 08/06 04:46 This 43 yrs old Male presents to ER via Ambulatory with complaints of Back tw4 Pain. 04:46 The patient presents with pain that is acute, with no known mechanism of injury. The tw4 symptoms are located in the left mid back. Onset: The symptoms/episode began/occurred this morning, and became worse 2 hour(s) ago. The pain does not radiate. Associated signs and symptoms: The patient has no apparent associated signs or symptoms. Modifying factors: The patient symptoms are alleviated by nothing, the patient symptoms are aggravated by nothing. The patient has not experienced similar symptoms in the past. Historical: - Allergies: 08/05 22:08 Lidocaine; ca1 - Home Meds: 22:08 None [Active]; ca1 - PMHx: 22:08 Kidney stones; ca1 - PSHx: 22:08 ankle surg; R arm surg; ca1 - Immunization history:: Adult Immunizations up to date, Flu vaccine is not up to date. - Social history:: Smoking status: Patient uses tobacco products, DIP. - Ebola Screening: : Patient negative for fever greater than or equal to 101.5 degrees Fahrenheit, and additional compatible Ebola Virus Disease symptoms Patient denies exposure to infectious person Patient denies travel to an Ebola-affected area in the 21 days before illness onset No symptoms or risks identified at this time. ROS: 08/06 04:46 Constitutional: Negative for fever, chills, and weight loss, Eyes: Negative for injury, tw4 pain, redness, and discharge, Cardiovascular: Negative for chest pain, palpitations, and edema, Respiratory: Negative for shortness of breath, cough, wheezing, and pleuritic chest pain, Abdomen/GI: Negative for abdominal pain, nausea, vomiting, diarrhea, and constipation. MS/Extremity: Negative for injury and deformity, Skin: Negative for injury, rash, and discoloration, Neuro: Negative for headache, weakness, numbness, tingling, and seizure. Back: Positive for pain at rest, flank pain, on the left. Exam: 04:46 Constitutional: This is a well developed, well nourished patient who is awake, alert, tw4 and in no acute distress. Head/Face: Normocephalic, atraumatic. Chest/axilla: Normal chest wall appearance and motion. Nontender with no deformity. No lesions are appreciated. Cardiovascular: Regular rate and rhythm with a normal S1 and S2. No gallops, murmurs, or rubs. Normal PMI, no JVD. No pulse deficits. Respiratory: Lungs have equal breath sounds bilaterally, clear to auscultation and percussion. No rales, rhonchi or wheezes noted. No increased work of breathing, no retractions or nasal flaring. Abdomen/GI: Soft, non-tender, with normal bowel sounds. No distension or tympany. No guarding or rebound. No evidence of tenderness throughout. 04:46 MS/ Extremity: Pulses equal, no cyanosis. Neurovascular intact. Full, normal range of motion. Neuro: Awake and alert, GCS 15, oriented to person, place, time, and situation. Cranial nerves II-XII grossly intact. Motor strength 5/5 in all extremities. Sensory grossly intact. Cerebellar exam normal. Normal gait. 04:46 Back: pain, that is mild, ROM is normal, CVA tenderness, that is moderate, is noted on the left. Vital Signs: 08/05 22:08 BP 161 / 109; Pulse 85; Resp 17 S; Pulse Ox 100% on R/A; Weight 104.33 kg (R); Height 6 ca1 ft. 0 in. (182.88 cm) (R); Pain 10/10; 23:00 BP 133 / 75; Pulse 85; Resp 20; Temp 97.8; Pulse Ox 98% ; Pain 8/10; rr5 23:40 BP 112 / 68; Pulse 62; Resp 18; Temp 98; Pulse Ox 99% ; Pain 4/10; rr5 08/06 00:00 BP 115 / 62; Pulse 69; Resp 16; Temp 97.7; Pulse Ox 98% on R/A; rr5 08/05 22:08 Body Mass Index 31.19 (104.33 kg, 182.88 cm) ca1 MDM: 08/05 22:01 Patient medically screened. tw4 08/06 04:46 Differential diagnosis: Cholelithiasis Osteomyelitis Peptic Ulcer sprain. Data tw4 reviewed: vital signs, nurses notes. Test interpretation: by ED physician or midlevel provider: not applicable. Counseling: I had a detailed discussion with the patient and/or guardian regarding: the historical points, exam findings, and any diagnostic results supporting the discharge/admit diagnosis. Medication response: morphine relieved the patient's pain. Symptoms have resolved, Toradol relieved patient's pain. The symptoms have resolved. Response to treatment: the patient's symptoms have resolved after treatment, and as a result, I will discharge patient, administer pain medication, ibuprofen. Special discussion: Based on the patient's Hx, exam, and Dx evaluation, there is no indication for emergent surgery or inpatient Tx. It is understood by the patient/guardian that if the Sx's persist or worsen they need to return immediately for re-evaluation. I discussed with the patient/guardian in detail that at this point there is no indication for admission to the hospital. It is understood, however, that if the symptoms persist or worsen the patient needs to return immediately for re-evaluation. ED course: CT scan reveals 5 mm ureteral stone with mild hydronephrosis. 08/05 22:16 Order name: CBC with Diff tw4 08/05 22:16 Order name: CMP tw4 08/05 22:16 Order name: CT Stone Protocol tw4 Administered Medications: 08/05 22:30 Drug: TORadol 30 mg Route: IVP; Site: right antecubital; rr5 23:30 Follow up: Response: No adverse reaction; Pain is decreased rr5 22:32 Drug: Zofran 4 mg Route: IVP; Site: right antecubital; rr5 23:30 Follow up: Response: No adverse reaction rr5 22:34 Drug: morphine 4 mg {Note: rass 0.} Route: IVP; Site: right antecubital; rr5 23:30 Follow up: Response: No adverse reaction; RASS: Alert and Calm (0) rr5 22:50 Drug: NS 0.9% 1000 ml Route: IV; Rate: 1 bolus; Site: right antecubital; rr5 23:50 Follow up: Response: No adverse reaction; IV Status: Completed infusion; IV Intake: rr5 1000ml Disposition: 08/05/19 23:42 Discharged to Home. Impression: Calculus of kidney with calculus of ureter. - Condition is Stable. - Discharge Instructions: Kidney Stones, Renal Colic. - Prescriptions for Ibuprofen 800 mg Oral Tablet - take 1 tablet by ORAL route every 8 hours As needed take with food; 30 tablet. Tylenol- Codeine #3 300-30 mg Oral Tablet - take 2 tablet by ORAL route every 6 hours As needed; 6 tablet. Flomax 0.4 mg Oral Capsule, Sust. Release 24 hr - take 1 capsule by ORAL route once daily 1/2 hour following the same meal each day; 30 capsule. Tramadol 50 mg Oral Tablet - take 1 tablet by ORAL route every 8 hours as needed; 12 tablet. - Medication Reconciliation Form, Thank You Letter, Antibiotic Education, Prescription Opioid Use form. - Follow up: Private Physician; When: Upon discharge from the Emergency Department; Reason: Recheck today's complaints, Continuance of care. - Problem is new. - Symptoms have improved. Signatures: Dispatcher [employer] Geovanni Ponce MD MD tw4 Bharat Anna RN RN rr5 Clara Casey RN RN ca1 Corrections: (The following items were deleted from the chart) 08/06 00:08 08/05 23:42 08/05/2019 23:42 Discharged to Home. Impression: Calculus of kidney with rr5 calculus of ureter. Condition is Stable. Forms are Medication Reconciliation Form, Thank You Letter, Antibiotic Education, Prescription Opioid Use. Follow up: Private Physician; When: Upon discharge from the Emergency Department; Reason: Recheck today's complaints, Continuance of care. Problem is new. Symptoms have improved. tw4
[2019-08-06 04:42] VITALS: BP 115/62; TEMP 97.7; O2SAT 98
--- NOTE | 2019-08-06 10:38 | RAD REPORT ---
EXAM DESCRIPTION: CT - Stone Protocol - 08/06/2019 1:27 am CLINICAL HISTORY: The patient is 43 years old and is Male; FLANK PAIN TECHNIQUE: Axial computed tomography images of the abdomen and pelvis without intravenous contrast. Sagittal and coronal reformatted images were created and reviewed. This CT exam was performed usi ng one or more of the following dose reduction techniques: automated exposure control, adjustment o f the mA and/or kV according to patient size, and/or use of iterative reconstruction technique. COMPARISON: No relevant prior studies available. FINDINGS: LUNG BASES: Unremarkable. No mass. No consolidation. ABDOMEN: LIVER: Homogeneous without focal mass. GALLBLADDER AND BILE DUCTS: The gallbladder is not well distended. PANCREAS: Unremarkable. No ductal dilation. SPLEEN: Unremarkable. ADRENALS: Unremarkable. No mass. KIDNEYS AND URETERS: Mild left hydronephrosis and proximal hydroureter is present secondary to a 0.5 cm proximal left ureteral calculus. Edema of the left kidney is noted with mild perinephric an d periureteral stranding. Bilateral intrarenal calcifications are present. STOMACH AND BOWEL: The stomach is distended with food contents. The small bowel is relatively no rmal in caliber. Minimal stool is present throughout colon. A few scattered colonic diverticula are n oted without surrounding inflammation. There is no bowel obstruction. PELVIS: APPENDIX: The appendix is normal in caliber without surrounding inflammation. BLADDER: Unremarkable. No stones. REPRODUCTIVE: Calcifications are present within the prostate. ABDOMEN and PELVIS: INTRAPERITONEAL SPACE: Unremarkable. No free air. No significant fluid collection. BONES/JOINTS: No acute fracture. SOFT TISSUES: The soft tissues are normal. VASCULATURE: Unremarkable. No abdominal aortic aneurysm. LYMPH NODES: Unremarkable. No enlarged lymph nodes. IMPRESSION: 1. Mild left hydronephrosis and proximal hydroureter is present secondary to a 0.5 cm proximal left ureteral calculus. 2. Bilateral nephrolithiasis. Electronically signed by: Genny Pineda MD 08/05/2019 11:11 PM [employer] Due to temporary technical issues with the PACS/Fluency reporting system, reports are being signed by the in house radiologist as a courtesy to ensure prompt reporting. The interpreting radiologist is f ully responsible for the content of the report.
== END 2019-08-06 00:08 | disposition home or self-care (01) ==
LOC: ER 21:47
DX: N20.2 Calculus of kidney with calculus of ureter (principal); F17.220 Nicotine dependence, chewing tobacco, uncomplicated; Z88.5 Allergy status to narcotic agent; Z87.442 Personal history of urinary calculi
CPT/HCPCS: 96361; 85025; 36415; 80053; 76377; 74176; 96375; 96374; 99284; J7030; J2405

== ENCOUNTER 2024-09-01 01:44 | Emergency (ER) | payer BC, SELFPAY ==
[2024-09-01] MEDS ORDERED: ONDANSETRON 4 MG/2 ML VIAL ONE (01:55)
[2024-09-01] MEDS ORDERED: MORPHINE 4 MG/ML SYR ONE ×2 (01:56→04:13)
[2024-09-01] MEDS ORDERED: KETOROLAC 30 MG/ML INJ ONE (01:56)
[2024-09-01 02:14] LABS: Absolute Basophils 0.1 K/uL (0-0.5); Absolute Lymphocytes (CBC) 1.6 K/uL (0.7-4.9); Absolute Monocytes 0.8 K/uL (0.1-1.3); Absolute Neutrophil 12.5 K/uL (1.8-8.0); Basophils % 0.5 % (0-1.3); Eosinophils % 0.3 % (0-4.4); Hematocrit 45.6 % (39.6-49.0); Hemoglobin 15.8 g/dL (13.6-17.9); MCH 31.8 pg (27.0-35.0); MCHC 34.6 g/dL (32.0-36.0); MCV 91.9 fL (80-100); MPV 8.1 fL (7.6-11.3); Monocytes % 5.1 % (3.3-12.3); Neutrophils % 83.1 % (41.7-73.7); Platelets 250 thou/uL (152-406); RBC Red Blood Cell Count 4.96 M/uL (4.33-5.43); Red Cell Distribution Width 12.7 % (12.1-15.2)
[2024-09-01 02:24] LABS: Albumin 3.9 g/dL (3.4-5.0); Albumin/Globulin Ratio 1.1 (1.1-1.8); Anion Gap 10.9 mEq/L (5.0-15.0); Bilirubin Total 1.2 mg/dL (0.2-1.0); Globulin 3.6 g/dL (2.3-3.5); Potassium 3.9 mEq/L (3.5-5.1); Protein, Total 7.5 g/dL (6.4-8.2)
[2024-09-01 02:36] LABS: Specific Gravity 1.012 (1.005-1.030); Sqamous Epithelial None Seen /HPF (None Seen); Urine Bacteria None Seen /HPF (<20); Urine Bilirubin NEGATIVE (Negative); Urine Blood Trace (Negative); Urine Clarity Clear (Clear); Urine Color Colorless (Yellow); Urine Culture Reflex Order NOT NEEDED; Urine Glucose NEGATIVE (Negative); Urine Ketones TRACE (Negative); Urine Microscopic Reflex YN ORDER UMIC; Urine Mucus Slight /HPF (None Seen); Urine Nitrite NEGATIVE (Negative); Urine Protein NEGATIVE (Negative); Urine Urobilinogen Normal (Normal); Urine WBC None Seen /HPF (<5); Urine pH 6.5 (5.0-7.0)
[2024-09-01] MEDS ORDERED: MORPHINE 2 MG/ML SYR ONE (04:13)
--- NOTE | 2024-09-01 04:19 | RAD REPORT ---
EXAM DESCRIPTION: Abdomen Pelvis Wo Contrast CLINICAL HISTORY: FLANK PAIN COMPARISON: 08/05/2019 TECHNIQUE: CT of the abdomen and pelvis without IV contrast. Evaluation of the solid organs and vascu lature is suboptimal due to lack of IV contrast. This exam was performed according to our departmental dose-optimization program, which includes automated exposure control, adjustment of the mA and/or kV according to patient size and/or use of iterative reconstruction technique. FINDINGS: Lung Bases: Mild basilar opacities probably representing atelectasis. Abdomen: Liver: The liver has normal contour and density. No obvious mass within the limitations of noncontr ast technique. Gallbladder: No calcified gallstones. Spleen, Pancreas, and Adrenal Glands: The spleen, pancreas, and adrenal glands are unremarkable. Kidneys: Multiple bilateral nonobstructing renal calculi. There is an obstructing calculus in the pro ximal left ureter measuring up to 6 mm on coronal images with moderate left hydronephrosis and perinephric fat stranding. There is a mildly hyperdense structure in the interpolar left kidney measu ring 1.2 x 1.1 cm which may represent a hyperdense cyst. Cannot exclude a solid lesion. Vasculature: The aorta and IVC have normal caliber and position. Stomach: The stomach and duodenum have normal course. Other: No free intraperitoneal air. No free fluid or lymphadenopathy. Pelvis: Bladder: Diffuse wall thickening may be due to underdistention. Bowel: No dilated loops of large or small bowel. Mild colon diverticulosis. Appendix: Normal appendix. Pelvis: No suspicious mass. Bones: No destructive bone lesions identified. IMPRESSION: 1. Obstructing 6 mm calculus in the proximal left ureter with moderate left hydronephrosis and jose r nephric fat stranding. 2. Multiple bilateral nonobstructing renal calculi. 3. Mildly hyperdense structure in the interpolar left kidney measuring up to 1.2 cm may represent a hyperdense cyst. Cannot exclude a solid lesion. This could be further evaluated with ultrasound. Electronically signed by: Corinna Cerda MD 09/01/2024 04:15 AM [facility] Due to temporary technical issues with the PACS/DataGravity reporting system, reports are being ara d by the in-house radiologist without review as a courtesy to ensure prompt reporting the interpreting radiologist is fully responsible for the content of the report. Transcribed Date/Time: 09/01/2024 4:18 AM
--- NOTE | 2024-09-01 04:38 | ER ---
Nurse's Notes [facility] Name: Olvin Butt Age: 48 yrs Sex: Male : 1975 Arrival Date: 09/01/2024 Time: 01:44 Bed 5 Private MD: Diagnosis: Calculus of ureter Presentation: 09/01 01:50 Chief complaint: Patient states: left flank pain possible kidney stones. ha1 01:50 Coronavirus screen: Client denies travel out of the [place] in the last 14 days. Ebola ha1 Screen: No symptoms or risks identified at this time. Initial Sepsis Screen: Does the patient meet any 2 criteria? No. Patient's initial sepsis screen is negative. Does the patient have a suspected source of infection? No. Patient's initial sepsis screen is negative. Risk Assessment: Do you want to hurt yourself or someone else? Patient reports no desire to harm self or others. Onset of symptoms was September 01, 2024. 01:50 Method Of Arrival: Ambulatory ha1 01:50 Acuity: IDALMIS 3 ha1 Triage Assessment: 01:50 General: Appears uncomfortable, Behavior is cooperative. Pain: Complains of pain in ha1 posterior aspect of left lateral abdomen Pain does not radiate. Pain currently is 9 out of 10 on a pain scale. Quality of pain is described as aching. Neuro: Level of Consciousness is awake, alert, obeys commands, Oriented to person, place, time, situation. Cardiovascular: Capillary refill < 3 seconds Patient's skin is warm and dry. Respiratory: Airway is patent Respiratory effort is even, unlabored. Historical: - Allergies: 01:50 Lidocaine; ha1 - PMHx: 01:50 Kidney stones; Hypertensive disorder; ha1 - Immunization history:: Adult Immunizations not up to date. - Infectious Disease History:: Denies. - Social history:: Smoking status: Patient denies any tobacco usage or history of. Screenin:06 [facility] ED Fall Risk Assessment (Adult) History of falling in the last 3 months, jj7 including since admission No falls in past 3 months (0 pts) Confusion or Disorientation No (0 pts) Intoxicated or Sedated No (0 pts) Impaired Gait No (0 pts) Mobility Assist Device Used No (0 pt) Altered Elimination No (0 pt) Score/Fall Risk Level 0 - 2 = Low Risk Oriented to surroundings, Maintained a safe environment, Educated pt \T\ family on fall prevention, incl call for assistance when getting out of bed, Assessed \T\ reinforced patient's understanding of fall precautions. Abuse screen: Denies threats or abuse. Nutritional screening: No deficits noted. Tuberculosis screening: No symptoms or risk factors identified. Assessment: 02:07 General: Appears in no apparent distress. uncomfortable, Behavior is calm, cooperative, jj7 agitated. Pain: Complains of pain in posterior aspect of left lateral abdomen. GI: Bowel sounds present X 4 quads. : Reports pain in left flank(s), DX WITH RIGHT SIDED KIDNEY STONES ON SATURDAY. Vital Signs: 01:50 BP 175 / 116; Pulse 93; Resp 17 S; Temp 98.1; Pulse Ox 99% on R/A; Weight 117.93 kg; ha1 Height 6 ft. 0 in. ; 02:37 BP 129 / 83; ec2 02:52 BP 125 / 82; Pulse 78; Resp 18 S; Pulse Ox 97% on R/A; br2 04:09 BP 122 / 88; Pulse 67; Resp 18; Pulse Ox 97% on R/A; Pain 4/10; br2 05:06 BP 116 / 86; Pulse 61; Resp 17; Temp 98.3; Pulse Ox 99% ; jj7 01:50 Body Mass Index 35.26 (117.93 kg, 182.88 cm) ha1 04:09 Pain Scale: Adult br2 ED Course: 01:46 Patient arrived in ED. gm2 01:47 Milton Huntley MD is Attending Physician. ec2 01:53 Braeden Felder RN is Primary Nurse. jj7 02:00 Patient has correct armband on for positive identification. Bed in low position. Call jj7 light in reach. Adult w/ patient. Provided Education on: USE OF CALL GRACIA. 02:00 Arm band placed on right wrist. Patient placed in an exam room, on a stretcher. jj7 02:05 CBC with Diff Sent. br2 02:05 CMP Sent. br2 02:05 Lipase Sent. br2 02:06 Inserted saline lock: 20 gauge in right antecubital area, using aseptic technique. br2 Blood collected. Flushed with 10 mL NS. 02:07 Triage completed. ha1 02:22 CT Abd/Pelvis - Without Contrast In Process Unspecified. EDMS 04:38 Raymon Ritchie MD is Referral Physician. ec2 05:07 No provider procedures requiring assistance completed. IV discontinued, intact, jj7 bleeding controlled, No redness/swelling at site. Pressure dressing applied. Administered Medications: 02:04 Drug: TORadol - Ketorolac IVP 15 mg IVP once Route: IVP; Site: right antecubital; br2 02:30 Follow up: Response: Pain is decreased br2 02:04 Drug: Ondansetron IVP 4 mg IVP once; over 2 minutes Route: IVP; Site: right antecubital;br2 02:30 Follow up: Response: Pain is decreased br2 02:05 Drug: morphine IVP or IV 4 mg IVP once over 4 mins Route: IVP; Infused Over: 4 mins; br2 Site: right antecubital; 02:30 Follow up: Response: No adverse reaction; Pain is decreased br2 04:15 Drug: morphine IVP or IV 6 mg IVP once over 4 mins Route: IVP; Infused Over: 4 mins; br2 Site: right antecubital; 04:50 Follow up: Response: Pain is decreased br2 05:05 Drug: HYDROcodone-acetaminophen PO 5 mg-325 mg 1 tabs PO once Route: PO; jj7 05:08 Follow up: Response: No adverse reaction jj7 Medication: 05:07 VIS not applicable for this client. jj7 Outcome: 04:37 Discharge ordered by . ec2 05:06 Discharged to home ambulatory, with significant other, jj7 05:06 Condition: improved 05:06 Discharge instructions given to patient, Instructed on discharge instructions, follow up and referral plans. medication usage, Demonstrated understanding of instructions, follow-up care, medications, Prescriptions given X 3, 05:08 Patient left the ED. jj7 Signatures: Dispatcher [employer] EDID Sabrina Ochoa RN RN ha1 Braeden Felder RN RN jj7 Milton Huntley MD MD ec2 Sridevi Sylvester gm2 Amelia Aguilar RN RN br2
--- NOTE | 2024-09-01 04:38 | EDPHYS ---
Physician Documentation [facility] Name: Olvin Butt Age: 48 yrs Sex: Male : 1975 Arrival Date: 09/01/2024 Time: 01:44 Bed 5 Private MD: ED Physician Milton Huntley HPI: 09/01 02:37 This 48 yrs old Male presents to ER via Ambulatory with complaints of ec2 Abdominal Pain, Back Pain, Possible Kidney Stone. 02:37 Patient arrives today for evaluation of left-sided flank pain that started earlier this ec2 evening. Patient reports pain has been constant. History of ureteral stones. Patient reports of associated nausea. No vomiting. No urinary complaints. No diarrhea.. Historical: - Allergies: 01:50 Lidocaine; ha1 - PMHx: 01:50 Kidney stones; Hypertensive disorder; ha1 - Immunization history:: Adult Immunizations not up to date. - Infectious Disease History:: Denies. - Social history:: Smoking status: Patient denies any tobacco usage or history of. ROS: 02:37 Constitutional: as per hpi ec2 Exam: 02:37 Constitutional: GEN: NAD Head: atraumatic Eyes: EOMI Ears: External ears are ec2 normal. CV: regular rate LUNGS: no respiratory distress ABD: non-distended, soft, nontender, not guarding, not rigid, left CVA TTP. SKIN: no evidence of rashes MSK: no evidence of trauma Vital Signs: 01:50 BP 175 / 116; Pulse 93; Resp 17 S; Temp 98.1; Pulse Ox 99% on R/A; Weight 117.93 kg; ha1 Height 6 ft. 0 in. ; 02:37 BP 129 / 83; ec2 02:52 BP 125 / 82; Pulse 78; Resp 18 S; Pulse Ox 97% on R/A; br2 04:09 BP 122 / 88; Pulse 67; Resp 18; Pulse Ox 97% on R/A; Pain 4/10; br2 05:06 BP 116 / 86; Pulse 61; Resp 17; Temp 98.3; Pulse Ox 99% ; jj7 01:50 Body Mass Index 35.26 (117.93 kg, 182.88 cm) ha1 04:09 Pain Scale: Adult br2 MDM: 01:47 Medical Screening Exam initiated ec2 02:38 Data reviewed: vital signs, nurses notes. ED course: . ec2 02:39 ED course: Patient arrives today for left-sided flank pain. Examination yields ec2 abdominal findings as above. Will obtain urine studies, lab work as well as CT imaging. Treated the patient with morphine as well as Toradol and antiemetic.. 02:52 ED course: CBC shows leukocytosis of 15. Metabolic profile shows appropriate ec2 electrolytes, renal dysfunction with a creatinine 1.43 and a GFR of 61. Urine with RBCs and blood present. Lipase within normal ranges. Pending CT imaging.. 04:36 ED course: CT imaging shows approximately 6 mm proximal ureteral stone. On reassessment ec2 patient with improvement in symptoms after morphine. Will discharge home with prescription for Tylenol 3, prescribed Zofran, patient already has Flomax at home. Will give the patient information to see urology as well. Return precautions given.. 09/01 01:47 Order name: CBC with Diff; Complete Time: 02:39 ec2 09/01 01:47 Order name: CMP; Complete Time: 02:39 ec2 09/01 01:47 Order name: Lipase; Complete Time: 02:39 ec2 09/01 02:04 Order name: Urinalysis w/ reflexes; Complete Time: 02:39 jj7 09/01 01:47 Order name: CT Abd/Pelvis - Without Contrast ec2 09/01 01:47 Order name: IV Saline Lock; Complete Time: 02:05 ec2 09/01 01:47 Order name: Labs collected and sent; Complete Time: 02:05 ec2 Administered Medications: 02:04 Drug: TORadol - Ketorolac IVP 15 mg IVP once Route: IVP; Site: right antecubital; br2 02:30 Follow up: Response: Pain is decreased br2 02:04 Drug: Ondansetron IVP 4 mg IVP once; over 2 minutes Route: IVP; Site: right antecubital;br2 02:30 Follow up: Response: Pain is decreased br2 02:05 Drug: morphine IVP or IV 4 mg IVP once over 4 mins Route: IVP; Infused Over: 4 mins; br2 Site: right antecubital; 02:30 Follow up: Response: No adverse reaction; Pain is decreased br2 04:15 Drug: morphine IVP or IV 6 mg IVP once over 4 mins Route: IVP; Infused Over: 4 mins; br2 Site: right antecubital; 04:50 Follow up: Response: Pain is decreased br2 05:05 Drug: HYDROcodone-acetaminophen PO 5 mg-325 mg 1 tabs PO once Route: PO; jj7 05:08 Follow up: Response: No adverse reaction jj7 Disposition Summary: 09/01/24 04:37 Discharge Ordered Notes: Location: Home ec2 Condition: Stable ec2 Diagnosis - Calculus of ureter ec2 Followup: ec2 - With: Private Physician - When: - Reason: Re-evaluation by your physician Followup: ec2 - With: Raymon Ritchie MD - When: - Reason: Recheck today's complaints Discharge Instructions: - Discharge Summary Sheet ec2 - Kidney Stones, [id number] ec2 Forms: - Work release form ec2 - Family Work Release ec2 - Medication Reconciliation Form ec2 - Antibiotic Education ec2 - Prescription Opioid Use ec2 - Patient Portal Instructions ec2 - Leadership Thank You Letter ec2 Prescriptions: - acetaminophen-codeine 300-30 mg Oral tablet - take 1 tablet ORAL route 3 times per day; 15 tablet; Refills: 0, Product ec2 Selection Permitted - Zofran 4 mg Oral Tablet - take 1 tablet ORAL route every 12 hours As needed; 20 tablet; Refills: 0, ec2 Product Selection Permitted - Lactulose 10 gram/15 mL Oral Solution - take 30 milliliters ORAL route once daily; 300 milliliter; Refills: 0, Product ec2 Selection Permitted Signatures: Dispatcher [employer] Sabrina Hull RN RN ha1 Braeden Felder RN RN jj7 Milton Huntley MD MD ec2 Amelia Aguilar RN RN br2 Corrections: (The following items were deleted from the chart) 01:48 01:48 Abdomen Pelvis Wo Con+CT.RAD.BRZ ordered. YENNI HYMAN
[2024-09-01] MEDS ORDERED: HYDROCODONE/APAP 5/325 MG TAB ONE (04:52)
[2024-09-04 01:02] VITALS: BP 116/86; TEMP 98.3; O2SAT 99
== END 2024-09-01 05:08 | disposition home or self-care (01) ==
LOC: ER 01:44
DX: N20.1 Calculus of ureter (principal); Z87.442 Personal history of urinary calculi
CPT/HCPCS: 36415; 74176; 80053; 81001; 83690; 85025; 96374; 96375; 99284; J2270; J2405